=== PATIENT | female | born 1965 | race Caucasian/White ===

== ENCOUNTER 2020-03-04 11:24 | Day surgery (SDC) | payer BC, SELFPAY ==
[2020-03-01 13:35] VITALS: BMI 23.0
[2020-03-04 12:40] LABS: Coronavirus 19 IgG Antibody Negative (Negative); Coronavirus 19 IgM Antibody Negative (Negative)
[2020-03-04 12:56] VITALS: BP 148/76; PULSE 57; RESP 18; TEMP 36.4; O2SAT 98
--- NOTE | 2020-03-04 13:55 | HMH.ANESCL ---
[facility] Anesthesia Checklist - Patient Identification Patient Identification: Arm Band - Structural Data Admitted From: Home Planned Operative Procedure/s: egd Consent for Planned Operative Procedure(s) Verified: Yes Verified Documents: Surgical Consent, History and Physical - NPO Status Verified Time NPO: 00:00 - Additional verifications Anesthesia Reactions: No - Airway Assessment C-Spine Mobility Assessed: Yes (mp2) TMJ Mobility Assessed: Yes Dentition: Good Dentition - Neurological Assessment Level of Consciousness: Awake, Alert - Anesthesia Plan Anesthesia Risk discussed: Yes Anesthesia Plan: Verified ASA Class: II Anesthesia Type: MAC [facility] History I have reviewed the patient's past medical history: Yes Medical History: Reports:: Anxiety Denies:: Cancer, Diabetes Mellitus Type 1, Diabetes Mellitus Type 2, Internal Pacemaker, MRSA, Seizures *Have you ever received a pneumonia vaccine?: No *Have you received a flu vaccine this season?: No Anesthesia experience/problems:: nac Other Surgeries: Yes: Appendectomy, , Diagnostic Lap, Other. No: Pacemaker Amputation: No Fractures: No - *Social History Last grade of school completed: High school graduate Smoking Status: Never smoker Alcohol Intake: current Alcohol Intake Frequency:: holidays/special occasions only Substance Use Type: denies use *Occupational Status:: unemployed Housing: house Household Members: spouse *Travel in the last 8 weeks: None Family Hx:: No significant family history
[2020-03-04 14:02] VITALS: O2SAT 97
--- NOTE | 2020-03-04 14:22 | P.PCN_ITS ---
[facility] Procedure Note Procedure Note:: Upper Endoscopy Procedure Report: Esophagogastroduodenoscopy with TTS balloon dilation Endoscopost: Jose Gonzalez II, MD Referring Physician: Rex De La Cruz MD ([facility]) Date of Procedure: March 04, 2020 Equipment: Olympus GIF 180 standard upper endoscope Sedation: MAC sedation Indications: Mrs. Hernandez is a 54-year-old female who is here for therapeutic upper endoscopy secondary to ongoing globus sensation and tightening of the retrosternal region especially in the retrohyoid region. The patient did have an EGD in May 2019 and had cricopharyngeal spasm. She also had nonerosive GERD with esophageal dysmotility and bile reflux with mild linear reactive gastropathy. She did not have improvement with omeprazole or Pepcid. She had minimal improvement with sucralfate. I did do dilation of the esophagus and placed her on dietary measures, Iberogast and low-dose buspirone (5 mg p.o. twice daily). She did have resolution of her symptoms at that time but they have recurred more recently. Procedure: Prior to the procedure, a history and physical exam was performed, and patient's medications and allergies were reviewed. The risks, benefits and alternatives of the sedation and procedure were discussed with the patient. All questions were answered and informed consent was obtained. The patient was brought to the procedure room. Patient identification and proposed procedure were verified by the physician and the nurse. The patient was placed in a left lateral decubitus position and the scope was passed under direct vision. Throughout the procedure, the patient's blood pressure, pulse, and oxygen saturations were monitored continuously. The upper GI endoscopy was accomplished without difficulty. The patient tolerated the procedure well. Findings: The scope was passed directly into the upper esophagus and advanced to the third portion of the duodenum. The post bulbar duodenum and duodenal bulb were normal with normal mucosa and conniventes. The scope was withdrawn through a normal duodenal bulb and pylorus into the stomach. There was some bile reflux with mild linear reactive gastropathy. The remainder of the antrum, body and fundus of the stomach were grossly normal. Upon retroflexion there was no hiatal hernia. The scope was then withdrawn into the esophagus. There was no evidence of reflux esophagitis or Elizabeth's. There were tertiary contractions and evidence of moderate esophageal dysmotility. The entire esophagus was dilated to 60 [place]/20 mm. There was some resistance at the cricopharyngeus (cricopharyngeal spasm). The remainder of the esophageal mucosa was normal. Impression: 1. Cricopharyngeal spasm status post dilation to 20 mm 2. Nonerosive GERD with mild esophageal dysmotility 3. Bile reflux with mild linear reactive gastropathy Plan: I will discuss the findings with the patient and family. I do feel that most of this is related to obstipation/incomplete bowel evacuation. That in turn results in fecal bacterial overgrowth and increased fermentation with gas pressure gradients driving the bile backflow and esophageal dyskinesia/esophageal spasm. I will review treatment options.
[2020-03-04 14:25] VITALS: BP 97/61; PULSE 61; RESP 12; TEMP 36.3; O2SAT 97
[2020-03-04 14:35] VITALS: BP 93/62; PULSE 62; RESP 16; O2SAT 99
[2020-03-04 14:45] VITALS: BP 98/63; PULSE 62; RESP 16; O2SAT 99
[2020-03-04 14:55] VITALS: BP 112/71; PULSE 76; RESP 16; TEMP 36.3; O2SAT 97
== END 2020-03-04 14:58 | disposition home or self-care (01) ==
PROVIDERS: PCP Family Medicine; Visit Provider Internal Medicine Gastroenterology
PROC: 0DJ08ZZ Inspection of Upper Intestinal Tract, Via Natural or Artificial Opening Endoscopic (ICD-10-PCS; CPT 43235; principal; 2020-03-04 13:30)
DX: J39.2 Other diseases of pharynx; K21.9 Gastro-esophageal reflux disease without esophagitis; K22.4 Dyskinesia of esophagus; K31.9 Disease of stomach and duodenum, unspecified; Z87.19 Personal history of other diseases of the digestive system; F41.9 Anxiety disorder, unspecified; Z90.49 Acquired absence of other specified parts of digestive tract; Z79.899 Other long term (current) drug therapy
CPT/HCPCS: 43249; 36415; 86328; C1726